=== PATIENT | female | born 1965 | race Caucasian/White ===

== ENCOUNTER → 2020-09-16 | Outpatient (CLI) | payer OTHER ==
[~2020-09-16] MED LIST: ACET325T14 PO; DESO1TAB47 PO; FERR325T18 PO; HYDR-3240 PO; IBUP-1222 PO; OXYC1TAB7 PO; [UNRECOGNIZED DRUG - REMARK]
[2020-09-16 10:25] LABS: BASOPHILS % (AUTO) 1 % (0-1); EOSINOPHILS % (AUTO) 3 % (1-7); LYMPHOCYTES % (AUTO) 35 % (22-44); MEAN CORPUSCULAR HEMOGLOBIN 28.3 pg (27.0-34.8); MEAN CORPUSCULAR HGB CONC 32.2 g/dL (32.4-35.8); MEAN PLATELET VOLUME 8.8 fL (7.4-10.4); MONOCYTES % (AUTO) 5 % (2-9); NEUTROPHILS % (AUTO) 57 % (42-75); PLATELET COUNT 251 x10^3/uL (130-400); RED BLOOD COUNT 5.15 x10^6/uL (3.82-5.3); RED CELL DISTRIBUTION WIDTH 14.3 % (9.6-15.2)
[2020-09-16 10:30] LABS: ALANINE AMINOTRANSFERASE 31 U/L (12-78); ALBUMIN 4.2 g/dL (3.4-5.0); ANION GAP 8 mmol/L (5-15); CALCIUM 9.5 mg/dL (8.5-10.1); CHLORIDE 104 mmol/L (98-107); PROTHROMBIN TIME 10.6 Seconds (9.6-11.5)
[2020-09-16 10:33] LABS: ALKALINE PHOSPHATASE 105 U/L (45-117); BILIRUBIN,TOTAL 0.6 mg/dL (0.2-1.0); CREATININE 0.78 mg/dL (0.55-1.02); TOTAL PROTEIN 8.3 g/dL (6.4-8.2)
[2020-09-16 10:39] LABS: MD NO
== END | disposition home or self-care (01) ==
LOC: STAR 08:09
PROVIDERS: ATTEND Neurological Surgery
DX: Z01.818 Encounter for other preprocedural examination (principal); M47.22 Other spondylosis with radiculopathy, cervical region
CPT/HCPCS: 36415; 80053; 85025; 85610; 85730; 93005

== ENCOUNTER → 2020-09-20 | Outpatient (CLI) | payer OTHER | END | disposition home or self-care (01) | LOC: STAR 08:42 | PROVIDERS: ATTEND Anesthesiology | DX: Z01.812 Encounter for preprocedural laboratory examination (principal); Z20.828 Contact with and (suspected) exposure to other viral communicable diseases | CPT/HCPCS: 36415; 87635 ==

== ENCOUNTER 2020-09-26 05:43 | Observation (INO) | payer OTHER ==
[2020-09-16 09:31] VITALS: BP 162/93
[~2020-09-26] VITALS: Ht 154.9 cm; Wt 86.2 kg
[2020-09-26] MEDS ORDERED: CHLORHEXIDINE 15 ML UDC MM ONE (06:30)
[2020-09-26] MEDS ORDERED: METF-734 PO (06:50)
[2020-09-26] MEDS ORDERED: LEVO50TA PO (06:50)
[2020-09-26] MEDS ORDERED: BACITRACIN OINT 500U/GM, 15 GM ONE (07:09)
[2020-09-26] MEDS ORDERED: BUPIVACAINE/PF 0.5% ONE (07:09)
[2020-09-26] MEDS ORDERED: BACITRACIN 50,000 UNIT ONE (07:09)
[2020-09-26] MEDS ORDERED: methylPREDNISolone *ACETATE* 40 MG/ML ONE (07:09)
[2020-09-26] MEDS ORDERED: EPINEPHRINE 1 MG/ML, 1ML ONE (07:09)
[2020-09-26] MEDS: LACTATED RINGERS 1,000 ML IV SCH (07:25)
[2020-09-26] MEDS ORDERED: HYDROmorphone 1 MG/ML, 1ML INJ IVPush PRN (07:30)
[2020-09-26] MEDS ORDERED: MEPERIDINE/PF 25MG/0.5ML IVPush PRN (07:30)
[2020-09-26] MEDS ORDERED: OXYcodone 5 MG/5 ML ORAL.SOL UDC PO PRN (07:30)
[2020-09-26] MEDS ORDERED: PROMETHAZINE 25 MG/ML, 1ML IVPush PRN (07:30)
[2020-09-26] MEDS ORDERED: HYDROcodone/APAP 7.5-325MG/15ML UDC PO PRN (07:30)
[2020-09-26] MEDS ORDERED: MIDAZOLAM 1 MG/ML, 2ML ONE (08:39)
[2020-09-26] MEDS ORDERED: FENTANYL PF 100 MCG/2ML ONE ×3 (08:39→12:55)
[2020-09-26] MEDS ORDERED: CEFAZOLIN 1,000 MG ONE (08:58)
[2020-09-26] MEDS ORDERED: ONDANSETRON 2MG/ML, 2ML ONE (08:58)
[2020-09-26] MEDS ORDERED: PROPOFOL 10 MG/ML, 20ML ONE (08:58)
[2020-09-26] MEDS ORDERED: EPHEDRINE 50 MG/ML, 1ML ONE (08:58)
[2020-09-26] MEDS ORDERED: DEXAMETHASONE 4 MG/ML, 1ML ONE (08:58)
[2020-09-26] MEDS ORDERED: SUGAMMADEX 200 MG/2 ML IVPush ONE (08:58)
[2020-09-26] MEDS ORDERED: PHENYLEPHRINE 10 MG/ML ONE (08:58)
[2020-09-26] MEDS ORDERED: ROCURONIUM 10 MG/ML,10ML ONE (08:58)
[2020-09-26] MEDS ORDERED: BUPIVACAINE/PF 0.5% INFIL ONE ×2 (09:49)
[2020-09-26] MEDS ORDERED: ONDANSETRON 2MG/ML, 2ML IVPush PRN (12:00)
[2020-09-26] MEDS ORDERED: DIPHENHYDRAMINE 50 MG CAPSULE PO PRN (12:00)
[2020-09-26] MEDS ORDERED: SENNA/DOCUSATE TABLET PO PRN (12:00)
[2020-09-26] MEDS ORDERED: MAGNESIUM HYDROXIDE 8%, 30ML UDC PO PRN (12:00)
[2020-09-26] MEDS ORDERED: LABETALOL 5MG/ML, 20ML IVPush PRN (12:00)
[2020-09-26] MEDS ORDERED: INSULIN REGULAR 100 UNITS/ML, 3ML VIAL SQ-INSULIN PRN (12:00)
[2020-09-26] MEDS ORDERED: PHARMACY MAY ADJ FOR RENAL FX MC PRN (12:00)
[2020-09-26] MEDS ORDERED: BISACODYL 10 MG SUPP PR PRN (12:00)
[2020-09-26] MEDS ORDERED: PROCHLORPERAZINE 5 MG/ML, 2ML IV PRN (12:30)
[2020-09-26] MEDS ORDERED: METHOCARBAMOL 750 MG TABLET PO PRN (12:30)
[2020-09-26] MEDS: FENTANYL PF 100 MCG/2ML IV PRN ×2 (12:57→13:02)
[2020-09-26] MEDS ORDERED: HYDROmorphone 1 MG/ML, 1ML INJ ONE (13:07)
[2020-09-26] MEDS ORDERED: DEXAMETHASONE 4 MG/ML, 1ML IVPush ONE (14:30)
[2020-09-26] MEDS: ACETAMINOPHEN 500 MG TABLET PO SCH ×3 (14:30→19:59)
[2020-09-26] MEDS: morphine SULFATE 10 MG/ML, 1ML IVPush PRN ×2 (14:31→18:34)
[2020-09-26] MEDS: OXYcodone 5 MG/5 ML ORAL.SOL UDC PO PRN ×2 (15:29→20:00)
[2020-09-26] MEDS: CYCLOBENZAPRINE 10 MG TABLET PO SCH ×3 (15:53→19:59)
[2020-09-26] MEDS: CEFAZOLIN PMX 1GM/50ML 50 ML IVPB SCH (17:29)
[2020-09-26 19:40] VITALS: BP 129/81
[2020-09-26] MEDS: INSULIN REGULAR 100 UNITS/ML, 3ML VIAL SQ-INSULIN SCH (20:19)
[2020-09-27 00:10] VITALS: BP 113/76
[2020-09-27] MEDS: CEFAZOLIN PMX 1GM/50ML 50 ML IVPB SCH (01:02)
[2020-09-27] MEDS: LACTATED RINGERS 1,000 ML IV SCH (01:04)
[2020-09-27] MEDS: ACETAMINOPHEN 500 MG TABLET PO SCH ×2 (02:19→07:45)
[2020-09-27] MEDS: OXYcodone 5 MG/5 ML ORAL.SOL UDC PO PRN ×3 (02:23→11:37)
[2020-09-27 04:30] VITALS: BP 117/77
[2020-09-27] MEDS ORDERED: LEVOTHYROXINE 50 MCG TABLET PO SCH (06:00)
[2020-09-27 06:13] LABS: BASOPHILS % (AUTO) 0 % (0-1); EOSINOPHILS % (AUTO) 0 % (1-7); LYMPHOCYTES % (AUTO) 12 % (22-44); MEAN CORPUSCULAR HEMOGLOBIN 28.2 pg (27.0-34.8); MEAN CORPUSCULAR HGB CONC 32.3 g/dL (32.4-35.8); MEAN PLATELET VOLUME 8.9 fL (7.4-10.4); MONOCYTES % (AUTO) 4 % (2-9); NEUTROPHILS % (AUTO) 84 % (42-75); PLATELET COUNT 295 x10^3/uL (130-400); RED BLOOD COUNT 4.72 x10^6/uL (3.82-5.3); RED CELL DISTRIBUTION WIDTH 14.6 % (9.6-15.2)
[2020-09-27 06:30] LABS: CHLORIDE 105 mmol/L (98-107)
[2020-09-27 06:35] LABS: ANION GAP 6 mmol/L (5-15); CALCIUM 9.5 mg/dL (8.5-10.1); CREATININE 0.96 mg/dL (0.55-1.02)
[2020-09-27 06:53] LABS: MD NO
[2020-09-27] MEDS: INSULIN REGULAR 100 UNITS/ML, 3ML VIAL SQ-INSULIN SCH ×2 (07:00→11:00)
[2020-09-27 07:30] VITALS: BP 122/67
[2020-09-27] MEDS: CYCLOBENZAPRINE 10 MG TABLET PO SCH (07:45)
[2020-09-27] MEDS ORDERED: MEDROL 4MG DOSEPAK PO SCH (08:00)
[2020-09-27 11:45] VITALS: BP 117/64
== END 2020-09-27 11:55 | disposition home or self-care (01) ==
LOC: OUT 05:43 → ORIP 11:58 → 2NW 14:00 → DCLOUNGE 09-27 11:52
PROVIDERS: ADMIT Neurological Surgery; ATTEND Neurological Surgery
DX: M47.22 Other spondylosis with radiculopathy, cervical region (principal); M47.12 Other spondylosis with myelopathy, cervical region; M50.20 Other cervical disc displacement, unspecified cervical region; M48.02 Spinal stenosis, cervical region; M47.27 Other spondylosis with radiculopathy, lumbosacral region; G43.909 Migraine, unspecified, not intractable, without status migrainosus; G56.03 Carpal tunnel syndrome, bilateral upper limbs; E03.9 Hypothyroidism, unspecified; E66.9 Obesity, unspecified; E11.9 Type 2 diabetes mellitus without complications; Z90.710 Acquired absence of both cervix and uterus; Z79.899 Other long term (current) drug therapy
CPT/HCPCS: 22551; 22552; 36415; 72040; 80048; 82962; 85025; 86850; 86900; 96365; 96366; 96375; 96376; 97162; 97166; C1713; C1762; C1889; G0378; J0171; J0690; J1100; J1170; J1815; J2250; J2270; J2370; J2405; J2704; J3010; J7120; J7509; S0020; J1030

== ENCOUNTER → 2020-11-20 | Outpatient (CLI) | payer OTHER ==
[~2020-11-20] MED LIST changes: +LEVO50TA PO; +METF-734 PO
[2020-11-20 10:19] LABS: BASOPHILS % (AUTO) 1 % (0-1); EOSINOPHILS % (AUTO) 3 % (1-7); LYMPHOCYTES % (AUTO) 41 % (22-44); MEAN CORPUSCULAR HEMOGLOBIN 29.7 pg (27.0-34.8); MEAN CORPUSCULAR HGB CONC 33.8 g/dL (32.4-35.8); MEAN PLATELET VOLUME 8.7 fL (7.4-10.4); MONOCYTES % (AUTO) 5 % (2-9); NEUTROPHILS % (AUTO) 51 % (42-75); PLATELET COUNT 265 x10^3/uL (130-400); RED BLOOD COUNT 4.97 x10^6/uL (3.82-5.3); RED CELL DISTRIBUTION WIDTH 14.1 % (9.6-15.2)
[2020-11-20 10:23] LABS: MD NO
[2020-11-20 10:25] LABS: ALBUMIN 4.1 g/dL (3.4-5.0); ANION GAP 6 mmol/L (5-15); CALCIUM 9.9 mg/dL (8.5-10.1); CHLORIDE 106 mmol/L (98-107)
[2020-11-20 10:29] LABS: ALANINE AMINOTRANSFERASE 40 U/L (12-78); ALKALINE PHOSPHATASE 110 U/L (45-117); CREATININE 0.79 mg/dL (0.55-1.02); TOTAL PROTEIN 8.3 g/dL (6.4-8.2)
== END | disposition home or self-care (01) ==
LOC: STAR 09:08
PROVIDERS: ATTEND Neurological Surgery
DX: Z01.812 Encounter for preprocedural laboratory examination (principal); G56.03 Carpal tunnel syndrome, bilateral upper limbs; Z20.828 Contact with and (suspected) exposure to other viral communicable diseases
CPT/HCPCS: 80053; 85025; 87635

== ENCOUNTER 2020-11-26 05:49 | Day surgery (SDC) | payer OTHER ==
[~2020-11-26] VITALS: Ht 157.5 cm; Wt 89.0 kg
[2020-11-26] MEDS ORDERED: CHLORHEXIDINE 15 ML UDC MM STA (06:03)
[2020-11-26] MEDS ORDERED: CHLORHEXIDINE 15 ML UDC ONE (06:07)
[2020-11-26 06:18] VITALS: BP 152/80
[2020-11-26] MEDS ORDERED: LACTATED RINGERS 1,000 ML IV SCH (06:30)
[2020-11-26] MEDS ORDERED: BACITRACIN OINT 500U/GM, 15 GM ONE (06:32)
[2020-11-26] MEDS ORDERED: BACITRACIN 50,000 UNIT ONE (06:32)
[2020-11-26] MEDS ORDERED: BUPIVACAINE/PF 0.5% ONE (06:32)
[2020-11-26] MEDS ORDERED: MIDAZOLAM 1 MG/ML, 2ML ONE (07:26)
[2020-11-26] MEDS ORDERED: FENTANYL PF 100 MCG/2ML ONE (07:27)
[2020-11-26] MEDS ORDERED: LIDOCAINE PF 2%, 5ML ONE (07:30)
[2020-11-26] MEDS ORDERED: DEXAMETHASONE 4 MG/ML, 1ML ONE (07:30)
[2020-11-26] MEDS ORDERED: HYDROmorphone 1 MG/ML, 1ML INJ IVPush PRN (08:00)
[2020-11-26] MEDS ORDERED: PROMETHAZINE 25 MG/ML, 1ML IVPush PRN (08:00)
[2020-11-26] MEDS ORDERED: ONDANSETRON 2MG/ML, 2ML IVPush PRN (08:00)
[2020-11-26] MEDS ORDERED: ACETAMINOPHEN 325 MG TABLET PO PRN (08:00)
[2020-11-26] MEDS ORDERED: OXYcodone 5 MG/5 ML ORAL.SOL UDC PO PRN (08:00)
[2020-11-26] MEDS ORDERED: LORazepam 2 MG/ML, 1ML IVPush PRN (08:00)
[2020-11-26] MEDS ORDERED: PROMETHAZINE 25 MG SUPP PR PRN (08:00)
[2020-11-26] MEDS ORDERED: FENTANYL PF 100 MCG/2ML IV PRN (08:00)
[2020-11-26] MEDS ORDERED: METHOCARBAMOL 1,000 MG in DEXTROSE 5% 100 ML IV PRN (08:00)
[2020-11-26] MEDS ORDERED: PROPOFOL 10 MG/ML, 20ML ONE (08:20)
[2020-11-26] MEDS ORDERED: ONDANSETRON 2MG/ML, 2ML ONE (08:20)
[2020-11-26] MEDS ORDERED: CEFAZOLIN 1,000 MG ONE (08:20)
[2020-11-26] MEDS ORDERED: OXYcodone 5 MG/5 ML ORAL.SOL UDC ONE (09:27)
[2020-11-26] MEDS ORDERED: ACETAMINOPHEN 650 MG/20.3 ML UDC ONE (09:27)
== END 2020-11-26 11:30 | disposition home or self-care (01) ==
LOC: OUT 05:49
PROVIDERS: ATTEND Neurological Surgery
DX: G56.02 Carpal tunnel syndrome, left upper limb (principal); E11.9 Type 2 diabetes mellitus without complications; G43.909 Migraine, unspecified, not intractable, without status migrainosus; H81.13 Benign paroxysmal vertigo, bilateral; Z79.1 Long term (current) use of non-steroidal anti-inflammatories (NSAID); Z79.84 Long term (current) use of oral hypoglycemic drugs; Z79.890 Hormone replacement therapy; Z79.899 Other long term (current) drug therapy; Z90.710 Acquired absence of both cervix and uterus; Z98.1 Arthrodesis status; Z83.3 Family history of diabetes mellitus; Z80.9 Family history of malignant neoplasm, unspecified
CPT/HCPCS: 64721; 82962; J0690; J1100; J2250; J2405; J2704; J3010; J7120